=== PATIENT | male | born 1930 | race Caucasian/White ===

== ENCOUNTER 2018-10-09 13:03 | Inpatient (IN) | payer OTHER ==
[~2018-10-09] VITALS: Ht 172.7 cm; Wt 69.9 kg
[2018-10-09 14:03] LABS: BASOPHILS % (AUTO) 0.7 % (0.0-5.0); EOSINOPHILS % (AUTO) 6.6 % (0.0-8.0); HEMATOCRIT 33.2 % (42-54); LYMPHOCYTES % (AUTO) 42.4 % (21.0-51.0); MEAN CORPUSCULAR HEMOGLOBIN 28.2 pg (27.0-33.0); MEAN CORPUSCULAR HGB CONC 33.4 g/dL (32.0-36.0); MEAN CORPUSCULAR VOLUME 84.6 fL (79-99); MONOCYTES % (AUTO) 12.1 % (3.0-13.0); NEUTROPHILS % (AUTO) 38.2 % (40.0-77.0); NUCLEATED RED BLOOD CELLS 0.1 % (0.0-0.19); PLATELET COUNT (AUTO) 250 K/uL (130-400); RED BLOOD CELL COUNT(AUTO) 3.92 MIL/uL (4.50-6.20); RED CELL DISTRIBUTION WIDTH 14.9 % (11.0-15.5); WHITE BLOOD COUNT (AUTO) 2.5 K/uL (4.8-10.8)
[2018-10-09] MEDS ORDERED: TRAMADOL HCL 50 MG TABLET ONE (14:07)
[2018-10-09 14:16] LABS: ALBUMIN 3.2 g/dL (3.5-5.0); BILIRUBIN,TOTAL 0.5 mg/dL (0.2-1.0); TOTAL PROTEIN, SERUM 6.4 g/dL (6.0-8.3)
[2018-10-09 14:31] LABS: BASOPHILS % (MANUAL) 1 % (0-2); EOSINOPHILS % (MANUAL) 8 % (1-6); LYMPHOCYTES % (MANUAL) 40 % (22-44); MONOCYTES % (MANUAL) 6 % (2-9); REACTIVE LYMPHOCYTES 4 % (0-0); SEGMENTED NEUTROPHILS % 41 % (40-70)
[2018-10-09 14:32] LABS: MAN.DIFF COMMENT-IMPRESSION MANUAL DIFFERENTIAL
[2018-10-09 14:34] LABS: PLATELET MORPHOLOGY COMMENT LARGE PLTS PRESENT
[2018-10-09 14:49] LABS: PARTIAL THROMBOPLASTIN TIME 30.7 SEC (26.3-35.5); PROTHROMBIN TIME 10.5 SEC (9.6-11.6)
[2018-10-09 15:35] LABS: APPEARANCE,URINE CLOUDY (CLEAR); BILIRUBIN,URINE NEGATIVE (NEGATIVE); COLOR,URINE YELLOW (YELLOW); GLUCOSE, URINE (UA) NEGATIVE (NEGATIVE); KETONES,URINE 15 mg/dL (NEGATIVE); LEUKOCYTE ESTERASE ,URINE TRACE (NEGATIVE); NITRATE,URINE NEGATIVE (NEGATIVE); OCCULT BLOOD,URINE LARGE (NEGATIVE); PROTEIN,URINE 30 (NEGATIVE); UROBILINOGEN,URINE 0.2 mg/dL (0.2-1.0)
[2018-10-09 15:41] LABS: RBC,URINE >100 /HPF (0-1)
[2018-10-09 15:43] LABS: BACTERIA,URINE Few /HPF (None Seen)
[2018-10-09 15:44] LABS: MUCUS,URINE Rare LPF (None Seen); SQUAMOUS EPITHELIAL CELL,UR Rare /HPF (0-2)
[2018-10-09] MEDS ORDERED: HEPARIN SODIUM 5000UNIT/ML 1ML VIAL ONE (17:38)
[2018-10-09] MEDS ORDERED: ONDANSETRON HCL 4 MG/2 ML VIAL IVP PRN (18:00)
[2018-10-09] MEDS ORDERED: ACETAMINOPHEN 325 MG TAB PO PRN ×2 (18:00)
[2018-10-09] MEDS ORDERED: MORPHINE SULFATE 2 MG/ML 1ML SYG IVP PRN (18:00)
[2018-10-09] MEDS ORDERED: SODIUM CHLORIDE 0.9% 50 ML IV ONE (20:39)
[2018-10-09] MEDS ORDERED: CEFTRIAXONE SODIUM 1 GM ONE (20:39)
[2018-10-09] MEDS ORDERED: SODIUM CHLORIDE 0.9% 1000ML 1,000 ML IV ONE (20:41)
[2018-10-09] MEDS ORDERED: MORPHINE SULFATE 4 MG/1ML SYG ONE (20:53)
[2018-10-09 22:10] VITALS: BP 150/71
--- NOTE | 2018-10-09 22:10 | NUR ---
ADMISSION. PT TRANSFERRED FROM ER INTO ROOM 403 VIA WHEEL CHAIR. PT AWAKE, ALERT, AND RESPONSIVE. NO C/O PAIN OR DISCOMFORT AT THIS TIME. PT ORIENTED TO ROOM AT THIS TIME, BED IN LOWEST POSITION, CALL RAND WITHIN REACH. Addendum: 10/09/18 at 2339 by ELIO MATOS RN Amended: Links added.
[2018-10-09] MEDS: SODIUM CHLORIDE 0.9% 1000ML 1,000 ML IV SCH (22:59)
[2018-10-09] MEDS: HEPARIN SODIUM 5000UNIT/ML 1ML VIAL SQ SCH (23:00)
[2018-10-09] MEDS: CEFTRIAXONE SODIUM 1 GM IVP SCH (23:00)
[2018-10-10] VITALS: BP 135/76
[2018-10-10 04:50] VITALS: BP 134/68
[2018-10-10 04:50] LABS: EOSINOPHILS % (AUTO) 3.4 % (0.0-8.0); HEMATOCRIT 33.1 % (42-54); LYMPHOCYTES % (AUTO) 40.2 % (21.0-51.0); MEAN CORPUSCULAR HEMOGLOBIN 28.8 pg (27.0-33.0); MEAN CORPUSCULAR HGB CONC 34.2 g/dL (32.0-36.0); MEAN CORPUSCULAR VOLUME 84.3 fL (79-99); NEUTROPHILS % (AUTO) 43.4 % (40.0-77.0); PLATELET COUNT (AUTO) 310 K/uL (130-400); RED BLOOD CELL COUNT(AUTO) 3.93 MIL/uL (4.50-6.20); RED CELL DISTRIBUTION WIDTH 14.3 % (11.0-15.5); WHITE BLOOD COUNT (AUTO) 3.3 K/uL (4.8-10.8)
[2018-10-10 04:54] LABS: CREATININE 1.1 mg/dL (0.5-1.5)
[2018-10-10] MEDS ORDERED: OXYMETAZOLINE HCL SPRAY 15 ML BOTTLE EN PRN (05:00)
[2018-10-10 05:10] LABS: INR 1.02 (0.85-1.15); PARTIAL THROMBOPLASTIN TIME 31.3 SEC (26.3-35.5); PROTHROMBIN TIME 10.7 SEC (9.6-11.6)
[2018-10-10 08:07] VITALS: BP 125/71
[2018-10-10] MEDS: FAMOTIDINE/PF 20 MG/2 ML VIAL IV SCH (09:26)
[2018-10-10] MEDS: HEPARIN SODIUM 5000UNIT/ML 1ML VIAL SQ SCH ×2 (09:27→20:33)
[2018-10-10 11:49] VITALS: BP 164/79
--- NOTE | 2018-10-10 15:13 | NUR ---
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 ADVISED HIM WOULD LET HIS MD TALK TO HIM [facility]. CM WILL F/UP Addendum: 10/10/18 at 1516 by FARZANEH PRICE RN CM Amended: Links added.
--- NOTE | 2018-10-10 15:29 | NUR ---
RD Notification received Patient NPO at time of screen. Patient NPO for possibility of surgery. Patient with appropriate BMI 23.4. Patient with no report of GI distress. Patient monitored labs: Alb 3.2, Ca 8.2; All other labs WNL. RD to continue to monitor. Please notify RD as nutritional concerns arise. Thank you. Addendum: 10/10/18 at [address] Amended: Links added.
[2018-10-10 16:00] VITALS: BP 146/67
--- NOTE | 2018-10-10 19:30 | NUR ---
MD SALAZAR. DR NBA SALAZAR ON PT AT THIS TIME. REVIEWED PT CHART AND ASSESSED PT. CONSENT READY FOR SURGERY TOMORROW. NO NEW ORDERS RECEIVED AT THIS TIME. Addendum: 10/11/18 at 0649 by ELIO MATOS RN Amended: Links added.
[2018-10-10 20:00] VITALS: BP 142/75
[2018-10-10] MEDS ORDERED: BISACODYL 10 MG SUPP.RECT RC ONE (20:00)
[2018-10-10] MEDS: CEFTRIAXONE SODIUM 1 GM IVP SCH (20:34)
[2018-10-10] MEDS: METOPROLOL TARTRATE 25 MG TAB PO SCH (20:34)
[2018-10-10] MEDS: SODIUM CHLORIDE 0.9% 1000ML 1,000 ML IV SCH (20:35)
[2018-10-11] VITALS (28 sets, daily range): BP systolic 114–141; BP diastolic 60–85
[2018-10-11] MEDS ORDERED: MORPHINE SULFATE 4 MG/1ML SYG ONE ×3 (01:46→20:34)
[2018-10-11] MEDS ORDERED: LORAZEPAM 2 MG/ML 1 ML VIAL IVP ONE (02:15)
[2018-10-11] MEDS ORDERED: LORAZEPAM 2 MG/ML 1 ML VIAL ONE (02:17)
--- NOTE | 2018-10-11 02:30 | NUR ---
PT STATUS. PT BEGAN GETTING AGITATED, GETTING OUT OF BED, ATTEMPTING TO WALK IN HALLWAY WITH WALKER. C/O PAIN TO RT HIP, PT ASSISTED BACK INTO BED AND PRN MORPHINE WAS ADMINISTERED ORDERED. PT CONTINUED TO ATTEMPT TO GET OUT OF BED, ADVISED THAT MEDICATION WOULD MAKE HIM DROWSY AND FOR HIS SAFETY HE NEEDED TO REMAIN IN BED. PT CONTINUED TO YELL AND KICK, ATTEMPTING TO GET OUT OF BED. LIO HORVATH MADE AWARE OF PT BEHAVIOR, NEW ORDERS RECEIVED (REFER TO EMR).
[2018-10-11 04:33] LABS: BASOPHILS % (AUTO) 0.5 % (0.0-5.0); EOSINOPHILS % (AUTO) 1.2 % (0.0-8.0); HEMATOCRIT 28.6 % (42-54); LYMPHOCYTES % (AUTO) 28.1 % (21.0-51.0); MEAN CORPUSCULAR HEMOGLOBIN 28.4 pg (27.0-33.0); MEAN CORPUSCULAR VOLUME 83.6 fL (79-99); MONOCYTES % (AUTO) 12.8 % (3.0-13.0); NEUTROPHILS % (AUTO) 57.4 % (40.0-77.0); PLATELET COUNT (AUTO) 243 K/uL (130-400); RED BLOOD CELL COUNT(AUTO) 3.42 MIL/uL (4.50-6.20); RED CELL DISTRIBUTION WIDTH 14.7 % (11.0-15.5); WHITE BLOOD COUNT (AUTO) 2.8 K/uL (4.8-10.8)
[2018-10-11 05:13] LABS: CREATININE 0.9 mg/dL (0.5-1.5); POTASSIUM 3.6 mmol/L (3.5-5.1)
--- NOTE | 2018-10-11 08:00 | NUR ---
Heart mummur Addendum: 10/11/18 at 1126 by ERLIN BALDERAS RN RN Amended: Links added.
--- NOTE | 2018-10-11 08:06 | NUR ---
MD SALAZAR. DR DARLENE SALAZAR THIS MORNING. ASSESSED PT AND REVIEWED CHART. NO NEW ORDERS GIVEN AT THIS TIME. Addendum: 10/11/18 at 0808 by ELIO MATOS RN Amended: Links added.
[2018-10-11] MEDS: METOPROLOL TARTRATE 25 MG TAB PO SCH ×2 (08:49→20:38)
[2018-10-11] MEDS: FAMOTIDINE/PF 20 MG/2 ML VIAL IV SCH (08:49)
[2018-10-11 08:53] LABS: % IRON SATURATION 6.9 % (30-44)
[2018-10-11] MEDS ORDERED: LACTATED RINGERS 1000ML 1,000 ML IV ONE (09:28)
[2018-10-11] MEDS ORDERED: DEXAMETHASONE SOD PHOSPHATE 10MG/ML 1ML VIAL ONE (09:57)
[2018-10-11] MEDS ORDERED: NEOSTIGMINE 5MG/5ML SYR IV ONE (09:57)
[2018-10-11] MEDS ORDERED: LIDOCAINE PF 2% 5ML ABBOJECT ONE (09:57)
[2018-10-11] MEDS ORDERED: PROPOFOL 10 MG/ML 20ML VIAL IV ONE (09:57)
[2018-10-11] MEDS ORDERED: SUCCINYLCHOLINE 200MG/10ML SYR ONE (09:57)
[2018-10-11] MEDS ORDERED: ONDANSETRON HCL 4 MG/2 ML VIAL ONE (09:57)
[2018-10-11] MEDS ORDERED: GLYCOPYRROLATE 1 MG/5 ML SYRINGE ONE (09:57)
[2018-10-11] MEDS ORDERED: FENTANYL CITRATE PF 50 MCG/1 ML 2ML VIAL ONE (09:58)
[2018-10-11] MEDS ORDERED: MIDAZOLAM HCL 1 MG/ML 2ML VIAL ONE (09:58)
[2018-10-11] MEDS ORDERED: ROCURONIUM 10MG/1ML SYR 10 MG/ML ML ONE (09:58)
[2018-10-11] MEDS ORDERED: CEFAZOLIN SODIUM 1 GM VIAL ONE (10:04)
[2018-10-11] MEDS ORDERED: EPHEDRINE SULFATE 50 MG/ML AMPULE ONE (10:07)
[2018-10-11] MEDS ORDERED: COMPOUND IV MISC 1 EACH IVSOLN MISC PRN (11:30)
[2018-10-11] MEDS: SODIUM CHLORIDE 0.9% 1000ML 1,000 ML IV SCH ×2 (11:51→19:32)
[2018-10-11] MEDS ORDERED: TEMAZEPAM 15 MG CAPSULE PO PRN (12:00)
[2018-10-11] MEDS ORDERED: POTASSIUM CHLORIDE 20MEQ/100ML 100 ML IV PRN (12:00)
[2018-10-11] MEDS ORDERED: DIPHENHYDRAMINE HCL 25 MG CAPSULE PO PRN (12:00)
[2018-10-11] MEDS ORDERED: PROMETHAZINE HCL 25 MG/ML 1ML AMPULE IM PRN (12:00)
[2018-10-11] MEDS ORDERED: CALCIUM CARBONATE 500 MG TABLET PO PRN (12:00)
[2018-10-11] MEDS ORDERED: LIDOCAINE HCL-MPF 1% 2ML VIAL IVP PRN (12:00)
[2018-10-11] MEDS ORDERED: KETOROLAC TROMETHAMINE 15MG/ML IV PRN (12:00)
[2018-10-11] MEDS ORDERED: HYDROCODONE/ACETAMINOPHEN 5/325 MG TAB PO PRN (12:00)
[2018-10-11] MEDS ORDERED: DiphenhydrAMINE HCL 50 MG/ML VIAL IVP PRN (12:00)
[2018-10-11] MEDS ORDERED: POTASSIUM CHLORIDE 10% ELIXIR 20 MEQ/15 ML UDCUP PO PRN (12:00)
[2018-10-11] MEDS: PSYLLIUM SEED 1 EACH PACKET PO SCH (12:00)
[2018-10-11] MEDS ORDERED: POTASSIUM CHLORIDE 20 MEQ ERTAB PO PRN (12:00)
[2018-10-11] MEDS ORDERED: FERROUS FUMARATE 324 MG TABLET PO PRN (12:00)
[2018-10-11] MEDS ORDERED: EPOETIN ALFA 10,000 UNIT/ML VIAL SQ SCH (12:00)
--- NOTE | 2018-10-11 13:12 | NUR ---
Pt. back s/p rt hip ORIF, dressing dry and intact, pt. awakens to verbal but goes back to sleep. Addendum: 10/11/18 at 1345 by ERLIN BALDERAS RN RN Amended: Links added.
[2018-10-11] MEDS: IRON SUCROSE COMPLEX 100 MG in SODIUM CHLORIDE 0.9% 50 ML IV SCH (13:31)
[2018-10-11] MEDS: FAMOTIDINE 20MG TAB 20 MG TAB PO SCH ×2 (19:22→20:38)
[2018-10-11] MEDS: CEFTRIAXONE SODIUM 1 GM IVP SCH (19:31)
--- NOTE | 2018-10-11 19:34 | NUR ---
nursing assessmet resting comfortably, nad, no sob, no c/o pain, resting comfortably, no family at bedside, dressing right lateral hip d/i, siderails up x4 for safety precautions
[2018-10-11] MEDS ORDERED: MIRT30TA6 PO (21:13)
[2018-10-11] MEDS ORDERED: ASPI-1197 PO (21:13)
[2018-10-11] MEDS ORDERED: FINA5TAB41 PO (21:27)
[2018-10-11] MEDS ORDERED: RANI150T7 PO (21:27)
[2018-10-11] MEDS ORDERED: GALA4TAB PO (21:27)
[2018-10-12] MEDS ORDERED: MORPHINE SULFATE 4 MG/1ML SYG ONE ×2 (01:58→14:33)
[2018-10-12 03:30] VITALS: BP 132/67
[2018-10-12 04:45] LABS: HEMATOCRIT 29.1 % (42-54); MEAN CORPUSCULAR HEMOGLOBIN 28.2 pg (27.0-33.0); MEAN CORPUSCULAR HGB CONC 33.5 g/dL (32.0-36.0); MEAN CORPUSCULAR VOLUME 84.4 fL (79-99); PLATELET COUNT (AUTO) 232 K/uL (130-400); RED BLOOD CELL COUNT(AUTO) 3.44 MIL/uL (4.50-6.20); RED CELL DISTRIBUTION WIDTH 15.2 % (11.0-15.5); WHITE BLOOD COUNT (AUTO) 4.4 K/uL (4.8-10.8)
[2018-10-12 05:08] LABS: CREATININE 0.8 mg/dL (0.5-1.5); POTASSIUM 3.9 mmol/L (3.5-5.1)
[2018-10-12 08:00] VITALS: BP 135/63
[2018-10-12] MEDS: TAMSULOSIN HCL 0.4 MG CAP.ER.24H PO SCH (08:24)
[2018-10-12] MEDS: HYDROCODONE/ACETAMINOPHEN 5/325 MG TAB PO PRN ×2 (08:24→08:28)
[2018-10-12] MEDS: POLYETHYLENE GLYCOL 3350 17 GM POWD.PACK PO SCH (08:24)
[2018-10-12] MEDS: METOPROLOL TARTRATE 25 MG TAB PO SCH ×2 (08:25→22:11)
[2018-10-12] MEDS: FINASTERIDE 5 MG TABLET PO SCH (08:25)
[2018-10-12] MEDS: FAMOTIDINE 20MG TAB 20 MG TAB PO SCH ×2 (08:25→22:11)
[2018-10-12] MEDS: ENOXAPARIN SODIUM 40 MG/0.4 ML SYRINGE SQ SCH (08:25)
[2018-10-12] MEDS: IRON SUCROSE COMPLEX 100 MG in SODIUM CHLORIDE 0.9% 50 ML IV SCH (08:34)
[2018-10-12] MEDS: SODIUM CHLORIDE 0.9% 1000ML 1,000 ML IV SCH (08:34)
[2018-10-12] MEDS: FAMOTIDINE/PF 20 MG/2 ML VIAL IV SCH (09:00)
[2018-10-12 12:00] VITALS: BP 109/57
[2018-10-12] MEDS: GALANTAMINE HBR 4 MG TABLET PO SCH ×2 (12:44→22:11)
[2018-10-12] MEDS: PSYLLIUM SEED 1 EACH PACKET PO SCH (12:44)
[2018-10-12 15:04] VITALS: BP 108/58
[2018-10-12 19:11] VITALS: BP 133/60
[2018-10-12] MEDS ORDERED: MIRTAZAPINE 15 MG TABLET PO SCH (21:00)
[2018-10-12] MEDS: CEFTRIAXONE SODIUM 1 GM IVP SCH (22:13)
[2018-10-12 23:21] VITALS: BP 138/67
[2018-10-13] MEDS: HYDROCODONE/ACETAMINOPHEN 5/325 MG TAB PO PRN ×3 (00:29→18:43)
[2018-10-13 03:49] VITALS: BP 128/68
[2018-10-13] MEDS ORDERED: MORPHINE SULFATE 4 MG/1ML SYG ONE (03:59)
[2018-10-13 05:12] LABS: HEMATOCRIT 28.3 % (42-54); MEAN CORPUSCULAR HEMOGLOBIN 28.3 pg (27.0-33.0); MEAN CORPUSCULAR HGB CONC 33.5 g/dL (32.0-36.0); MEAN CORPUSCULAR VOLUME 84.5 fL (79-99); NUCLEATED RED BLOOD CELLS 0.1 % (0.0-0.19); PLATELET COUNT (AUTO) 236 K/uL (130-400); RED BLOOD CELL COUNT(AUTO) 3.35 MIL/uL (4.50-6.20); RED CELL DISTRIBUTION WIDTH 15.3 % (11.0-15.5); WHITE BLOOD COUNT (AUTO) 3.8 K/uL (4.8-10.8)
[2018-10-13 05:34] LABS: EOSINOPHILS % (MANUAL) 8 % (1-6); LYMPHOCYTES % (MANUAL) 12 % (22-44); MAN.DIFF COMMENT-IMPRESSION MANUAL DIFFERENTIAL; MONOCYTES % (MANUAL) 12 % (2-9); PLATELET MORPHOLOGY COMMENT ADEQUATE; SEGMENTED NEUTROPHILS % 68 % (40-70)
[2018-10-13 05:36] LABS: POTASSIUM 3.4 mmol/L (3.5-5.1)
[2018-10-13 07:49] VITALS: BP 160/76
[2018-10-13] MEDS: FAMOTIDINE/PF 20 MG/2 ML VIAL IV SCH (08:42)
[2018-10-13] MEDS: IRON SUCROSE COMPLEX 100 MG in SODIUM CHLORIDE 0.9% 50 ML IV SCH (08:42)
[2018-10-13] MEDS: ENOXAPARIN SODIUM 40 MG/0.4 ML SYRINGE SQ SCH (08:42)
[2018-10-13] MEDS: POLYETHYLENE GLYCOL 3350 17 GM POWD.PACK PO SCH (08:42)
[2018-10-13] MEDS: FINASTERIDE 5 MG TABLET PO SCH (08:42)
[2018-10-13] MEDS: GALANTAMINE HBR 4 MG TABLET PO SCH (08:43)
[2018-10-13] MEDS: FAMOTIDINE 20MG TAB 20 MG TAB PO SCH (08:43)
[2018-10-13] MEDS: METOPROLOL TARTRATE 25 MG TAB PO SCH (08:43)
[2018-10-13] MEDS: TAMSULOSIN HCL 0.4 MG CAP.ER.24H PO SCH (08:43)
[2018-10-13] MEDS ORDERED: ASPIRIN 81MG TAB.CHEW PO SCH (09:00)
[2018-10-13 11:00] VITALS: BP 97/54
[2018-10-13] MEDS: PSYLLIUM SEED 1 EACH PACKET PO SCH (12:00)
[2018-10-13] MEDS ORDERED: BISACODYL 5 MG TABLET.DR PO PRN (12:00)
--- NOTE | 2018-10-13 12:43 | NUR ---
[facility] ACCEPTED cm spoke to Laila with [facility] states pt has been accepted. Cm notified nursing. Shay aware that pt has had some confusion but doing better today. Addendum: 10/13/18 at 1244 by SURJIT BROWN CM Amended: Links added.
[2018-10-13 16:00] VITALS: BP 132/97
--- NOTE | 2018-10-13 16:34 | NUR ---
dr. downs made aware of pt's reconciliation form , ordered as per dr. miller made aware of lovenox order to be d/c and aspirin 81 mg every other day , as per med reconciliation for retama. stated it was ok
--- NOTE | 2018-10-13 17:07 | NUR ---
PT'S MADE AWARE OF DR. ARANGO AND DR. CASTREJON'S ORDERS MADE AWARE PT WAS ACCEPTED TO SNF AND WOULD BE D/C TODAY IN THE NEXT HR OR SO. STATED WOULD COME BY .
--- NOTE | 2018-10-13 17:10 | NUR ---
TRIED CALLING REPORT TO [facility], SPOKE Radha NEGRETE STATED, HE DID NOT KNOW THE ROOM AND WOULD CALL ME B ACK WITH THE ROOM NUMBER PENDING TO GIVE REPORT
--- NOTE | 2018-10-13 18:45 | NUR ---
PT D/C DENIES SOB OR CHEST PAIN IV REMOVED, CATHETER INTACT FULL EDUCATION WITH TEACH BACK GIVEN TO AND PT FULL REPORT GIVEN TO PENELOPE FROM [facility] \ CHARGE NURSE AWARE
[2018-10-13 18:54] VITALS: BP 133/68
[2018-10-14] MEDS ORDERED: BISACODYL 10 MG SUPP.RECT RC PRN (12:00)
== END 2018-10-13 19:05 | DRG 981 ==
LOC: EDH 13:03 → EDHIP 17:00 → 4AH 21:16
PROVIDERS: ADMIT Internal Medicine; ATTEND Internal Medicine
PROC: 0QS604Z Reposition Right Upper Femur with Internal Fixation Device, Open Approach (ICD-10-PCS; principal; 2018-10-11 09:55)
DX: N39.0 Urinary tract infection, site not specified (principal); S72.114A Nondisplaced fracture of greater trochanter of right femur, initial encounter for closed fracture; S72.301A Unspecified fracture of shaft of right femur, initial encounter for closed fracture; G95.9 Disease of spinal cord, unspecified; I10 Essential (primary) hypertension; N40.1 Benign prostatic hyperplasia with lower urinary tract symptoms; H54.61 Unqualified visual loss, right eye, normal vision left eye; G89.18 Other acute postprocedural pain; K21.9 Gastro-esophageal reflux disease without esophagitis; Y99.8 Other external cause status; I35.0 Nonrheumatic aortic (valve) stenosis; F32.9 Major depressive disorder, single episode, unspecified; W01.0XXA Fall on same level from slipping, tripping and stumbling without subsequent striking against object, initial encounter; R01.1 Cardiac murmur, unspecified; F03.90 Unspecified dementia, unspecified severity, without behavioral disturbance, psychotic disturbance, mood disturbance, and anxiety; D50.9 Iron deficiency anemia, unspecified; Y93.89 Activity, other specified; Y92.89 Other specified places as the place of occurrence of the external cause
CPT/HCPCS: 36415; 71045; 72131; 72170; 72192; 76000; 80048; 80053; 81001; 82550; 83540; 83550; 84484; 85025; 85027; 85610; 85730; 86850; 86900; 86901; 93005; A4218; G0378; J0330; J0690; J0696; J0885; J1100; J1644; J1650; J1756; J1885; J2001; J2060; J2250; J2270; J2405; J2704; J2710; J3010; J3490; J7030; J7120